=== PATIENT | female | born 1985 | race Caucasian/White ===

== ENCOUNTER 2017-04-02 09:28 | Day surgery (SDC) | payer OTHER ==
[2017-03-29 08:25] LABS: BASOPHILS 0.3 %; BASOPHILS ABSOLUTE 0.03 10/3/uL (0.0-0.16); EOSINOPHILS 6.8 %; EOSINOPHILS ABSOLUTE 0.58 10/3/uL (0.0-0.53); HEMATOCRIT 36.9 % (36.0-48.0); HEMOGLOBIN 12.3 g/dL (12.0-16.0); IMMATURE GRANULOCYTES 0.1 %; IMMATURE GRANULOCYTES ABSOLUTE 0.01 10/3/uL (0.0-0.11); LYMPHOCYTES 24.8 %; LYMPHOCYTES ABSOLUTE 2.13 10/3/uL (0.67-4.30); MEAN CORPUS HGB CONC 33.3 g/dL (32.0-36.0); MEAN CORPUSCULAR HEMOGLOB 27.5 pg (26.0-34.0); MEAN CORPUSCULAR VOLUME 82.4 fL (80-100); MEAN PLATELET VOLUME 9.2 fL (9.2-13.0); MONOCYTES 9.3 %; NEUTROPHILS 58.7 %; NEUTROPHILS ABSOLUTE 5.04 10/3/uL (2.02-8.40); PLATELET COUNT 433 10/3/uL (150-400); RBC DISTRIBUTION WIDTH 14.1 % (12.0-16.0); RED CELL COUNT 4.48 10/6/uL (4.0-5.6); WHITE BLOOD CELLS 8.6 10/3/uL (4.5-10.5)
[2017-03-29 08:26] LABS: MANUAL DIFF NO %
[2017-03-29 08:41] LABS: A/G RATIO 0.9 (0.7-1.9); ALBUMIN 3.5 G/DL (3.5-5.0); ALKALINE PHOSPHATASE 164 U/L (45-117); BUN (BLOOD UREA NITROGEN) 10 MG/DL (6-23); CALCIUM, SERUM 8.9 MG/DL (8.5-10.4); CHLORIDE, SERUM 102 MMOL/L (96-112); CO2 (CARBON DIOXIDE) 29 MMOL/L (24-34); CREATININE 0.67 MG/DL (0.55-1.02); GFR AFRICAN AMERICAN 134 ML/MIN (>=60); GFR NON AFRICAN AMERICAN 115 ML/MIN (>=60); GLOBULIN 3.9 G/DL (2.5-4.1); GLUCOSE, SERUM 82 MG/DL (60-99); POTASSIUM, SERUM 3.7 MMOL/L (3.5-5.3); SGOT(AST) 16 U/L (5-40); SGPT(ALT) 19 U/L (5-65); SODIUM, SERUM 137 MMOL/L (135-148); TOTAL BILIRUBIN 0.3 MG/DL (0-1.2); TOTAL PROTEIN 7.4 G/DL (6.0-8.5)
--- NOTE | ~2017-04-02 | OP ---
Record Of Operation [facility] [address] [place]. [address] NAME: AYUSH BEASLEY : 81 STATUS : REG [facility] [place] PAT#: [id number] AGE: 31 ADM/REG DATE : 04/02/17 MR#: [id number] REPORT SERV DATE: 04/02/17 DICTATED BY: SOLE KIM III DATE: 04/02/17 REPORT STATUS : Draft TRANSCRIBED BY: MODL DATE: 04/02/17 DATE OF PROCEDURE: 04/02/2017 PREOPERATIVE DIAGNOSIS: Symptomatic acalculous cholecystitis. POSTOPERATIVE DIAGNOSIS: Symptomatic acalculous cholecystitis. PROCEDURE: Laparoscopic cholecystectomy. SURGEON: Sole Kim M.D. ANESTHESIA: General with intubation. COMPLICATIONS: None. ESTIMATED BLOOD LOSS: Less than 30 mL. SPECIMENS: Gallbladder. DRAINS: None. LAP AND SPONGE COUNT: Correct x3. BRIEF HISTORY: This 31-year-old female presented with evidence for symptomatic acalculous cholecystitis. It was felt that laparoscopic cholecystectomy, possible laparotomy, was indicated. This procedure, the risks, benefits, and alternatives, including but not limited to the risk for bleeding, infection, common bile duct injury, bile leak, retained common bile stone, enterotomy, or injury to any abdominal structure, the definite possible need for laparotomy, possible persistence of her symptoms unrelieved by surgery, possibility of postoperative diarrhea or incisional hernia, and unforeseen complications including deep venous thrombosis, pulmonary embolus, myocardial infarction, stroke, pneumonia, and were fully and completely explained to the patient prior to the surgery. The fact that this was a major operation with risk for major morbidity and mortality and no guarantee for relief of her symptoms were explained to her. The expected length of recovery with both open laparoscopic procedures was explained. The patient had questions, which were answered. She fully understood the risks and agreed to the surgery as planned. DESCRIPTION OF PROCEDURE: After being properly identified, and after discussing the risks and benefits of the surgery with her and her family again in the preoperative area, she was taken to the operating room, and placed in the supine position on the operating room table. General anesthesia was administered. She was intubated without difficulty. The abdomen was prepped and draped sterilely in the usual fashion. After an appropriate "time-out" per JCAHO standards, a small transverse incision was made just below the xiphoid process. The incision was continued through the subcutaneous tissue. Hemostasis was controlled with the cautery. The incision was continued down to the fascia. The patient's abdominal wall was extremely thick secondary to massive obesity. The incision was continued through the Record Of Operation [facility] [id number] [place]. [address] NAME: AYUSH BEASLEY : 81 STATUS : REG [facility]#: [id number] AGE: 31 ADM/REG DATE : 04/02/17 MR#: [id number] REPORT SERV DATE: 04/02/17 DICTATED BY: SOLE KIM III DATE: 04/02/17 REPORT STATUS : Draft TRANSCRIBED BY: MODL DATE: 04/02/17 fascia. The abdominal cavity was then entered under direct vision. A #10 balloon-tipped Origin trocar was placed under direct vision into the abdominal cavity. The balloon was inflated. The abdominal cavity was then insufflated to about 13 mmHg of carbon dioxide. The correct position of air in the abdominal cavity was confirmed by palpation. The laparoscope was placed through this. The abdomen was inspected. A 10 mm trocar was placed below the umbilicus, under direct vision with the laparoscope. The laparoscope was now placed through the infraumbilical trocar. The patient was placed in reverse Trendelenburg position and to her left. Two 5 mm trocars were placed along the right subcostal margin, one in the midaxillary line, and the other in the midclavicular line. These were also placed under direct vision with the laparoscope. The upper abdomen was inspected. The gallbladder appeared to be chronically diseased. The gallbladder mustafa were thickened, inflamed, and there were adhesions between the gallbladder and omentum consistent with cholecystitis. The liver had some changes consistent with fatty liver disease. The upper abdomen was otherwise unremarkable as far as we could determine through the laparoscope. The appropriate instruments were placed through the trocars. Using sharp dissection, the adhesions between the gallbladder and omentum were carefully divided. The gallbladder was then grasped and the infundibulum of gallbladder was retracted laterally and inferiorly so as to expose the triangle of Calot. Using sharp dissection, the cystic duct was carefully and meticulously defined proximally and distally. The cystic duct was fairly long. The junction of the cystic duct, the common bile duct was appreciated, it was not skeletonized. The cystic artery was similarly defined proximally and distally. The fibrous and fatty tissue between these structures was divided so as to clearly identify the critical view of safety in the triangle of Calot. The lower portion the gallbladder was dissected away from the liver plate so as to clearly identify the critical angle. Once these structures were clearly defined, the cystic duct was clipped with two clips on the common bile duct side and one on the gallbladder side, all placed as close to the gallbladder as possible taking care not encroach upon or injure the cystic duct in any way. We elected not to perform a cholangiogram because there was no preoperative or intraoperative evidence of biliary dilatation and because of the patient's preoperative liver enzymes were normal and because her biliary anatomy was clearly defined, the cystic artery was similarly clipped and divided as close to the gallbladder as possible. Using the spatula and the cautery, the gallbladder was carefully dissected from the liver bed. This went very well. Before the gallbladder was completely removed, the gallbladder bed and portal areas were irrigated numerous times with saline, saline was aspirated dry. This process was repeated several times until hemostasis was meticulously and thoroughly assured in all areas. It was also assured that the clips in the portal area were in good position, and that there was no extravasation of bile from any accessory bile ducts. Once this was assured, the gallbladder was completely dissected away from the liver and placed in an Endopouch. The liver bed was elevated, irrigated, inspected for meticulous and thorough hemostasis and for absence of any biliary extravasation. Once this was assured, gallbladder and the Endopouch were brought out through the subxiphoid trocar site. The fascia of this incision was closed with 0 Vicryl suture. A 5 mm laparoscope was then placed through one of the lateral trocar site and the infraumbilical 10 mm trocar was removed under direct vision with the laparoscope to assure hemostasis in this incision. The fascia of this incision was closed with 0 Vicryl suture. Record Of Operation [facility] [address] [place]. [address] NAME: AYUSH BEASLEY : 81 STATUS : REG [facility]#: [id number] AGE: 31 ADM/REG DATE : 04/02/17 MR#: [id number] REPORT SERV DATE: 04/02/17 DICTATED BY: JUDY CISNEROSSOLE DATE: 04/02/17 REPORT STATUS : Draft TRANSCRIBED BY: KAELYN DATE: 04/02/17 The lateral two trocars were then removed under direct vision with the laparoscope after the air was removed from the peritoneal cavity through these trocars. The skin incisions were inspected for hemostasis, and they were closed with running subcuticular 4-0 Monocryl stitches. They were injected with 0.5% Marcaine. Dressings were applied. Anesthesia was reversed, and the patient was taken to the recovery room in stable condition. She tolerated the procedure well. Her family was informed the results of the surgery. The patient will be discharged when stable and comfortable tolerating liquids, and able to void and ambulate. Her family was advised that she should remain on liquid diet today advance as tolerated to regular diet tomorrow. She should keep the wound clean and dry for 48 hours, that she should not drive for three to four days after surgery or while using narcotics, and that she should resume her usual medications. She has been asked to return in two weeks for followup or sooner if any fever, chills, nausea, vomiting, wound drainage, abdominal pain, weakness, or other problems prior to that time. She was given a prescription for Percocet 7.5 one t.i.d., #12, as needed for pain, which she was advised not to use while driving. HEATHER/KAELYN Sole Kim III, M.D. / [id number] CC: Lida Lopez III, M.D.
--- NOTE | ~2017-04-02 | PREOPHP ---
PreOp History and Physical [address] [place]. [address] NAME: AYUSH BEASLEY : 81 [place] [facility] [place] [id number] AGE: 31 ADM/REG DATE : MR#: [id number] REPORT SERV DATE: 04/01/17 DICTATED BY: SOLE KIM III DATE: 03/24/17 REPORT STATUS : Draft TRANSCRIBED BY: MODL DATE: 03/24/17 HISTORY OF PRESENT ILLNESS: This 29-year-old female comes to the operating room for laparoscopic cholecystectomy, possible laparotomy, for symptomatic acalculous cholecystitis associated with gallbladder polyp. The patient recently had an episode of chest pain or epigastric pain with pain migrating to the right clavicle. The pain sometimes occurs after eating. The patient has evidence for acalculous cholecystitis, and comes now for laparoscopic cholecystectomy, possible laparotomy. She also has evidence for a gallbladder polyp, which has been followed sonographically. PAST MEDICAL HISTORY: 1. Depression. 2. Hyperlipidemia. 3. Hypertension. 4. Sleep apnea. 5. Gastroesophageal reflux disease. PAST SURGICAL HISTORY: Includes section. FAMILY HISTORY: Positive for hypertension and heart disease. MEDICATIONS: Nifedipine, Zantac, sertraline, Zyrtec. SOCIAL HISTORY: No tobacco use. No history of alcohol use. ALLERGIES: TO PENICILLIN. REVIEW OF SYSTEMS: The patient's 14-point review of systems is otherwise unremarkable. PHYSICAL EXAMINATION: GENERAL: Morbidly obese female, in no acute distress. She is alert and oriented x3. VITAL SIGNS: Blood pressure 149/99, pulse 93, temperature 97. HEENT: Unremarkable. NEUROLOGIC: Cranial nerves II through XII were normal. LUNGS: Clear. CARDIAC: Normal. ABDOMEN: Soft and nontender, but obese. EXTREMITIES: Normal with no edema. LABORATORY DATA: Previous gallbladder ultrasound shows gallbladder polyps. HIDA scan shows a borderline low ejection fraction of 34%. ASSESSMENT: A 29-year-old female with: 1. Symptomatic acalculous cholecystitis, associated with gallbladder polyp. 2. Morbid obesity. PreOp History and Physical [address] [address] NAME: AYUSH BEASLEY : 81 [place] [facility] [place] [id number] AGE: 31 ADM/REG DATE : MR#: [id number] REPORT SERV DATE: 04/01/17 DICTATED BY: SOLE KIM III DATE: 03/24/17 REPORT STATUS : Draft TRANSCRIBED BY: KAELYN DATE: 03/24/17 3. History of depression. 4. Hyperlipidemia. 5. Hypertension. 6. Obstructive sleep apnea. PLAN: The patient comes to the operating room now for laparoscopic cholecystectomy, possible laparotomy. This procedure, the risks, benefits, and alternatives, including but not limited to the risk for bleeding, infection, common bile duct injury, bile leak, retained common bile duct stone, enterotomy or injury to any abdominal structure, the definite possible need for laparotomy, the possible persistence of her symptoms that are unrelieved by surgery, possibility of postoperative diarrhea or incisional hernia, and unforeseen complications including deep venous thrombosis, pulmonary embolus, myocardial infarction, stroke, pneumonia, and , have been fully and completely explained to the patient prior to surgery. The fact that this is a major operation with risk for major morbidity, mortality, and no guarantee for relief of her symptoms has been explained. The expected length of recovery with both open and laparoscopic procedure has been explained. The fact that she is at increased risk of enterotomy, common bile duct injury, possible need for laparotomy due to her obesity has been explained. The possibility of a future development of gallbladder cancer associated with gallbladder polyp has been explained. The patient's questions have been answered. The option of nonoperative management has been offered to the patient, but declined. The patient understands the risks and wishes to proceed with surgery as planned. HEATHER/KAELYN Sole Kim III, M.D. / [id number]
[~2017-04-02 09:28] MED LIST: GARLIQUE PO; HARD NAILS PO; NIFEDIAC CC60 MG PO; PRILO PO; SUCR PO; VITAMIN B COMPLEX PO; ZANTAC150 MG PO; ZOL100 PO; ZYRTEC ALLGY10 MG PO
[2017-04-02 15:18] LABS: HEMATOCRIT 34.5 % (36.0-48.0); HEMOGLOBIN 11.6 g/dL (12.0-16.0)
== END 2017-04-02 18:15 | disposition home or self-care (01) ==
LOC: SDC 09:28
PROVIDERS: Surgery
PROC: 0FT44ZZ Resection of Gallbladder, Percutaneous Endoscopic Approach (ICD-10-PCS; principal; 2017-04-02 10:15)
DX: K80.10 Calculus of gallbladder with chronic cholecystitis without obstruction (principal); K82.8 Other specified diseases of gallbladder; K21.9 Gastro-esophageal reflux disease without esophagitis; I10 Essential (primary) hypertension; E78.5 Hyperlipidemia, unspecified; G47.33 Obstructive sleep apnea (adult) (pediatric); F32.9 Major depressive disorder, single episode, unspecified; Z82.49 Family history of ischemic heart disease and other diseases of the circulatory system; Z98.890 Other specified postprocedural states; Z88.0 Allergy status to penicillin; Z88.1 Allergy status to other antibiotic agents; Z79.899 Other long term (current) drug therapy; Z99.89 Dependence on other enabling machines and devices; Z86.010 Personal history of colon polyps
CPT/HCPCS: 71020; 80053; 84703; 85014; 85018; 85025; 88304; 93005; A9270-GY; J0690; J1170; J1885; J2250; J2405; J2710; J3010